=== PATIENT | female | born 2005 | race Caucasian/White ===

== ENCOUNTER 2024-12-27 08:24 | Outpatient (CLI) | payer BC, SELFPAY ==
--- NOTE | ~2024-12-27 | MR_ITS ---
MRI of the right knee Clinical history: Pain Technique: Coronal proton density and proton density-weighted images, sagittal proton-density and T2 fat-sat images, and axial proton-density fat-saturated images were acquired. Findings: Anterior and posterior cruciate ligaments are intact. Medial collateral ligament and the la teral collateral ligament complex appear intact. Popliteus tendon is intact. Medial meniscus is intact, without evidence of tear. There is extensive complex tearing of the anteri or horn and body of the lateral meniscus which are largely absent/macerated, with tearing probably ex tending into the diminutive posterior horn of the lateral meniscus. There is minimal chondral malacia patella. 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 There is probable developing osteochondral lesion along th e lateral aspect of the femoral trochlea. There is high-grade chondromalacia the medial joint line, s uch at the medial tibial plateau. Probable prior surgical repair at the anterior tibial spine with hi gh-grade chondromalacia of the inner aspect of the lateral tibial plateau. Extensor mechanism is intact. Minimal joint effusion present. No Hernandez's cyst. Impression: Extensive complex tearing of the lateral meniscus, especially anterior horn and body, which are large ly macerated absent. Suspected developing osteochondral lesion of the lateral aspect of the femoral trochlea with extensiv e high-grade chondromalacia of the femoral trochlea. There is suspected prior operative repair at the anterior tibial spine. Correlate with surgical histo ry. Additional areas of high-grade contemplation the medial lateral compartments, as detailed above. Reviewed, dictated and finalized at location . Impression: Extensive complex tearing of the lateral meniscus, especially anterior horn and body, which are largely macerated absent. 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 There is suspected prior operative repair at the anterior tibial spine. Correla te with surgical history. Additional areas of high-grade contemplation the medial lateral compartments, a s detailed above.
--- OUTSIDE RECORDS SUMMARY | 2024-12-27 08:31 | XMS_ITS | Clinical Summary ---
Author Organization [facility] Address [address] [place] [address] Phone Care Team Providers Care Hog Killer Name Role Phone Susan Culver APRN, BIRD CAGE ASSEMBLER Primary Care P rovider Paxton Duncan MD Unavailable Vineet Rashid MD Unavailable [phone] Allergies Active Allergy Reactions Criticality Noted Date Comments Baclofen Rash 04/01/2018 Medications clindamycin (CLEOCIN T) 1 % LotionIndicatio ns:Acne vulgaris use thin film on affected area twice a day 3 Bottle 4 1 Active Levonorgestrel- Ethinyl Estrad 0.1-20 MG-MCG Chewable Tablet levonorgestrel- ethinyl estradiol 0.1 mg-20 mcg tablet Active FLUoxetine (PROzac) 10 MG CapsuleIndicati ons:Anxiety TAKE 1 CAPSULE DAILY 90 Capsule 3 4 Active celecoxib (CeleBREX) 200 MG Capsule Take 200 mg by mouth daily. 4 Active albuterol 108 (90 Base) MCG/ACT Aerosol SolutionIndicat ions:History of pneumonia take 2 Puffs by inhalation every 4 hours as needed for Wheezing or Cough (SOB). 18 g 1 4 Active ondansetron (Zofran) 4 MG TabletIndicatio ns:Nausea Take 1 Tablet by mouth every 8 hours as needed for Nausea - 2nd line. 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 Hepatosplenomegaly 12/06/2021 Fatty liver 12/06/2021 Anxiety 02/14/2021 Generalized abdominal pain 11/16/2020 Immunizations Immunization Administration Dates Next Due Covid-19, Mrna, Lnp-s, Pf, 3 0 Mcg/0.3 Ml Dose (Biomonde) 01/14/2021,12/24/2020 Covid-19, Mrna, Lnp-s, Pf, 3 0 Mcg/0.3 Ml Dose, Mitch-sucrose (Biomonde dinh top) 11/09/2021 DTAP VACCINE 01/25/2009, 5,2004,05/11,2004 HIB Vaccine (PRP-T) 04/14/2005,2004,2003 Hepatitis A Vaccine 08/26/2010 Hepatitis B Vaccine 04/14/2005,2004,2003 Human Papillomavirus (HPV) 9 -valent Vaccine 10/28/2018,04/01/2018 Inactivated Polio Vaccine 01/25/2009,01/2004,2004,03/11 Influenza Vaccine 08/27/2016 Influenza Vaccine greater than 3 yrs 07/17/2015, 09/30/2010,08/26/2010 Influenza Vaccine less than 3 yrs 07/17/2007,05/2006,07/14/2005 Influenza Vaccine, MDCK,quad rivalent, pres free 06/22/2019 Influenza Vaccine, Quadrivalent, PF 10/2020,07/28/2018,05/23/2017,06/29 Influenza Vaccine,unspecifie d Formulation 05/11/2022 Influenza,Split Virus,Trivalent,Injectable,PF 08/05/2024 MMR Vaccine 01/25/2009,01/25/2005,01/13/2005 Meningococcal Group B OMV 04/25/2021,03/17/2021 Meningococcal MCV4O 02/23/2020 Meningococcal Vaccine 03/22/2015 PUR FLU 3+ YRS PRES FREE QUAD IM 06/29/2014 PUR HEP A PED ADOLES 2 DOSE IM 02/11/2015 PUR TDAP 7+ YRS IM 03/22/2015 Pneumococcal Vaccine Peds - 7 Valent 02/2005,2004,2004,03/11 Pur Varicella Virus SQ 02/11/2015 Varicella Vaccine Live 01/13/2005 Family History Relation Name Status Comments Father Alive Mother Alive Social History Tobacco Use Types Packs/Day Years Used Date Smoking Tobacco: Never Smokeless Tobacco: Never Tobacco Cessation:Counseling Given: No Alcohol Use Standard Drinks/Week Comments No 0 (1 standard drink = 0.6 oz pur e alcohol) [facility] [employer] Answer Date Recorded In the past 12 months has e [employer], gas, oil, or water company threatened to shut off services in your home? No 08/03/2024 Social Connection and Isolat ion Panel [NHANES] Answer Date Recorded In a typical week, how many times do you talk on the phone with family, friends, or neighbors? More than three times a week 08/03/2024 How often do you get togethe r with friends or relatives? More than three times a week 08/03/2024 How often do you attend [facility] or mandaen services? More than 4 times per year 08/03/2024 Do you belong to any clubs o r organizations such as rastafari groups, unions, fraternal or athletic groups, or school groups? Yes 08/03/2024 How often do you attend meet ings of the clubs or organizations you belong to? More than 4 times per year 08/03/2024 Are you , , di vorced, , never , or living with a partner? Never 08/03/2024 AUDIT-C Answer Date Recorded Q1: How often do you have a drink containing alcohol? Never 08/03/2024 Q2: How many drinks containi ng alcohol do you have on a typical day when you are drinking? Patient does not drink Q3: How often do you have si x or more drinks on one occasion? Never 08/03/2024 Overall Financial Resource Strain (CARDIA) Answe r Date Recorded How hard is it for you to pa y for the very basics like food, housing, medical care, and heating? Not hard at all 08/03/2024 PHQ-2 Answer Date Recorded Total Score - Questions 1-9 5 07/12 [facility] - Occupational Stress Questionnaire Answer Date Recorded Do you feel stress - tense, restless, nervous, or anxious, or unable to sleep at night because your mind is troubled all the time - these days? Rather much 08/03/2024 Exercise Vital Sign Answer Date Recorde d On average, how many days pe r week do you engage in moderate to strenuous exercise (like a brisk walk)? 3 days 08/03/2024 On average, how many minutes do you engage in exercise at this level? 50 min 08/03/2024 Hunger Vital Sign Answer Date Recorded Within the past 12 months, y ou worried that your food would run out before you got the money to buy more. Never true 08/03/20 24 Within the past 12 months, t he food you bought just didn't last and you didn't have money to get more. Never true 08/03/2024 PRAPARE - Transportation Answer Date Re corded In the past 12 months, has l ack of transportation kept you from medical appointments or from getting medications? No 07/12 In the past 12 months, has l ack of transportation kept you from meetings, work, or from getting things needed for daily living? No 08/03/2024 Housing Stability Vital Sign Answer Koby e Recorded In the last 12 months, was t here a time when you were not able to pay the mortgage or rent on time? No 08/03/2024 In the past 12 months, how m any times have you moved where you were living? 1 08/03/2024 At any time in the past 12 m [facility], were you homeless or living in a mcc (including now)? No 08/03/2024 Education Answer Date Recorded What is the highest level of school you have completed or the highest degree you have received? Some college, no degree 02/12/2023 Sexually Active Control Partners Comments Never Comments No Sex and Gender Information Value Date Recorded Sex Assigned at Female 10/30/2023 10:00 PM PSYCHOLOGIST SOCIAL Legal Sex Female 4:03 AM PSYCHOLOGIST SOCIAL Gender Identity Female 10/30/2023 10:00 PM PSYCHOLOGIST SOCIAL Sexual Orientation Straight 10/30/2023 10 :00 PM PSYCHOLOGIST SOCIAL Last Filed Vital Signs Vital Sign Reading Time Taken Comments Blood Pressure 108/76 08/05/2024 7:53 AM PSYCHOLOGIST SOCIAL Pulse 74 08/05/2024 7:53 AM PSYCHOLOGIST SOCIAL Temperature 36.1 C (96.9 F) 08/05/2024 7:53 AM PSYCHOLOGIST SOCIAL Respiratory Rate 16 08/05/2024 7:53 AM PSYCHOLOGIST SOCIAL Oxygen Saturation 99% 08/05/2024 7:53 AM PSYCHOLOGIST SOCIAL Inhaled Oxygen Concentration - - Weight 84.1 kg (185 lb 6.4 oz) 08/05/2024 7:53 A M PSYCHOLOGIST SOCIAL Height 180.3 cm (5' 11 ) 08/05/2024 7:53 AM PSYCHOLOGIST SOCIAL Body Mass Index 25.86 08/05/2024 7:53 AM PSYCHOLOGIST SOCIAL Plan of Treatment Health Maintenance Due Date Last Done Comments SARS-COV-2 Immunization ( season) 2024 11/09/2021, 01/14/2021, 12/24/2020 DTaP/Tdap/Td Immunization (7 - Td or Tdap) 03/22/2025 03/22/2015, 01/25/2009, 04/14/2005, Additional history exists Respiratory Syncytial Virus (RSV) Immunization (Adult) (1 - 1-dose 75+ series) 01/08/2079 Pneumococcal Immunization Combined Aged Out 01/13/2005, 2004, 2004, Additional history exists No longer eligible based on patient's age to complete this topic Hepatitis B Immunization Completed 005, 2004, 2004 Measles Mumps Rubella (MMR) Immunization Discontinued 01/25/2009, 01/25/2005, 01/13/2005 Polio (IPV) Immunization Discontinued 009, 2004, 2004, Additional history exists Hepatitis A Immunization Discontinued 02/11/2015, 08/10 Varicella Immunization Discontinued 02/11/2015, 2004 Human Papillomavirus (HPV) Immunization Completed 10/28/2018, 04/01/2018 Meningococcal Immunization (ACWY) Completed 02/23/2020, 03/22/2015 Meningococcal B Immunization Completed 04/25/2021, 03/17/2021 Hepatitis C Virus (HCV) Screening Completed 12/19/2021 Influenza Immunization Completed , 05/17/2023, 05/11/2022, Additional history exists Rotavirus Immunization Aged Out No lo nger eligible based on patient's age to complete this topic Procedures Procedure Name Priority Date/Time Associated Diagnosis Comments PAIN MEDICINE PROCEDURE 11/07/2024 12:00 AM PSYCHOLOGIST SOCIAL from Last 3 Months Results * PAIN MEDICINE PROCEDURE (11/07/2024 12:00 AM PSYCHOLOGIST SOCIAL) 11/07/2024 us Provider Scan GEN ORDERS Final Result SCAN from Last [address] [place] [address] [place] [address] [place] [address] * Guarantor: [facility] Account Type Relation to Patient Date of Phone Billing Address Institutional Other [address] [facility] [address] [place] [address] Care Teams Hog Killer Relationship Specialty Start Date End Date Susan Culver APRN, BIRD CAGE ASSEMBLER [address] [place] [address] PCP - General Advanced Practice Nurse 12/17/20 Paxton Duncan MD [address] [place] [address] Consulting Physician Gastroenterology 06/29/22 Vineet Rashid MD [address] [place] [address] Consulting Physician Gastroenterology 08/29/22
--- OUTSIDE RECORDS SUMMARY | 2024-12-27 08:31 | XMS_ITS | Encounter Summary ---
Author Organization [facility] Address [address] [place] [address] Phone Care Team Providers Care National Park Ranger Name Role Phone Susan Culver APRN, CNP Primary Care P rovider Paxton Duncan MD Unavailable Vineet Rashid MD Unavailable [phone] Reason for Visit * Reason Comments Medication Refill fluoxetine Encounter Details Date Type Department Care Team (Late st Contact Info) Description 02/05/2024 Refill [facility] - Family Medicine [facility] [address] [place] [address] Susan Culver APRN, JOLIE [address] [place], [place] [id number] Medication Refill (fluoxetine) Social History Tobacco Use Types Packs/Day Years Used Date Smoking Tobacco: Never Smokeless Tobacco: Never Alcohol Use Standard Drinks/Week Comments No 0 (1 standard drink = 0.6 oz pur e alcohol) PHQ-2 Answer Date Recorded Total Score - Questions 1-9 0 01/2023 Education Answer Date Recorded What is the highest level of school you have completed or the highest degree you have received? Some college, no degree 02/12/2023 Sexually Active Control Partners Comments Never Comments No Sex and Gender Information Value Date Recorded Sex Assigned at Female 10/30/2023 10:00 PM HEAVY EQUIPMENT TECHNICIAN Legal Sex Female 4:03 AM HEAVY EQUIPMENT TECHNICIAN Gender Identity Female 10/30/2023 10:00 PM HEAVY EQUIPMENT TECHNICIAN Sexual Orientation Straight 10/30/2023 10 :00 PM HEAVY EQUIPMENT TECHNICIAN documented as of this encounter Miscellaneous Notes * Telephone Encounter - Elise Sheikh RN - 02/05/2024 3:25 PM CDT Requested Prescriptions Pending Prescriptions Disp Refills FLUoxetine (PROzac) 10 MG Capsule [Pharmacy Med Name: FLUOXETINE HCL CAPS 10MG] 90 Capsule 3 Sig: TAKE 1 CAPSULE DAILY Last Refilled - 02/12/23 #90 ref 3 Last Appt - Last physical 02/12/23 Recent Visits Date Type Provider Dept 04/10/23 Office Visit Susan Culver APRN, [facility] 03/26/23 Office Visit Susan Culver APRN, [facility] 02/12/23 Office Visit Susan Culver APRN, [facility] Showing recent visits within past 365 days and meeting all other requirements Future Appointments No visits were found meeting these conditions. Showing future appointments within next 90 days and meeting all other requirements Future Appt - Visit date not found Labs - na documented in this encounter Plan of Treatment Not on file documented as of this encounter Visit Diagnoses Diagnosis Anxiety Anxiety state, unspecified documented in this encounter Additional Health Concerns Infection Onset Date Last Indicated Resolved Time Respiratory Rule-Out 06/03/2024 06/03/2024 024 8:04 AM HEAVY EQUIPMENT TECHNICIAN Assessment Noted Time PHQ-9 Depression Total Score: 0 02/13/20 23 1:49 PM CDT documented as of this encounter Care Teams National Park Ranger Relationship Specialty Start Date End Date Susan Culver APRN, JOLIE [address] [facility] [address] [place] [address] PCP - General Advanced Practice Nurse 12/17/20 Paxton Duncan MD [address] [place], [place] [id number] Consulting Physician Gastroenterology 06/29/22 Vineet Rashid MD [address] [place] [address] Consulting Physician Gastroenterology 08/29/22 documented as of this encounter
--- OUTSIDE RECORDS SUMMARY | 2024-12-27 08:31 | XMS_ITS | Data Portability ---
Author Organization [facility], autoContract - Main Office Address [address] [place] [address] Care Team Providers Care Fitting Room Supervisor Name Role Phone YANELI MCCOLLUM Primary Care Provider Assessment No assessment recorded. Plan of Treatment Reminders Order Date Submit Date Provider Last Modified By Organization Details Last Modified Time Details Appointments None recorded. Lab respiratory pathogens DNA and RNA panel, PCR, nasopharynx 2023 024 [facility] (Lab), [address] [place] [address], [id number], 4 14:04:47 unlisted lab - rapid strep 2023 024 [facility] (Lab), [address] [place] [address], [id number], 4 18:33:13 influenza virus A + B and SARS CoV 2 (COVID-19) and RSV RNA panel, LINNETTE+probe, respiratory specimen 2023 024 [facility] (Lab), [address] [place] [address], [id number], 4 18:33:13 Referral None recorded. Procedures None recorded. Surgeries None recorded. Imaging XR, chest, 2 view 2023 024 [email or web address] [facility], [address] [place] [address], [id number], 4 12:34:39 XR, chest, 2 view 09/2023 [email or web address] [facility], [address] [place], [address], 15:51:51 Medication Orders albuterol sulfate 2.5 mg/3 mL (0.083 %) solution for nebulizatio n 2023 024 [email or web address] Not available 10:45:07 doxycycline hyclate 100 mg capsule 2023 [facility], [address] [place], [address], 11:30:42 azithromyci n 250 mg tablet 2023 [facility], [address] [place], [address], 15:47:32 sodium chloride 0.9 % intravenous solution 2023 [email or web address] [facility], [address] [place], [address], 10:29:56 Patient TargetsNo targets recorded. Patient Instructions Encounter Date Encounter Id Patient Instructions Last Modified By Organization Details Last Modified Time 05/28/2024 [id number] Finish out the azithromycin Start Doxycycline today Push fluids May use albuterol inhaler 2 puffs every 6 hours for next few days to help open up lungs If not improving in 3-4 days, then follow up. [email or web address] Not available 05/28/2024 12:26:30 Reason for Referral None Reported. Results Created Date Observation Date Name Description Value Unit Range Abnormal Flag Note LastModifiedBy Organization Detail LastModifiedTime 05/25/2005/25/2024 4 PLEX PANEL influenza A Negati ve negati ve normal Elect shannan beauchamp by BRUNO Retana Not Available [facility] (Lab) [address] [place], [address], 05/25/2024 15:03:15 05/25/20 05/25/2024 4 PLEX PANEL influenza B Negati ve negati ve normal Not Available [facility] [address] [place] [address], [id number], 05/25/2024 15:03:15 05/25/20 24 05/25/2024 4 PLEX PANEL covid-19 Negati ve negati ve normal Not Available [facility] [address] [place] [address], [id number], 05/25/2024 15:03:15 05/25/20 24 05/25/2024 4 PLEX PANEL RSV Negati ve negati ve normal Not Available [facility] [address] [place] [address], [id number], 05/25/2024 15:03:15 05/25/20 24 05/25/2024 RAPID STREP rapid strep Negati ve negati ve normal Elect ronic ally damaris d by BRUNO HAYS R Not Available [facility] [address] [place] [address], [id number], 05/25/2024 15:03:16 06/03/20 24 06/03/2024 RESPI RATOR Y covid-19 Negati ve negati ve normal Elect ronic ally damaris d by BRUNO AGUILERAE R Not Available [facility] [address] [place] [address], [id number], 06/03/2024 14:04:47 06/03/20 24 06/03/2024 RESPI RATOR Y adenovirus Negati ve normal Not Available [facility] [address] [place] [address], [id number], 06/03/2024 14:04:47 06/03/20 24 06/03/2024 RESPI RATOR Y influenza A Negati ve negati ve normal Not Available [facility] [address] [place] [address], [id number], 06/03/2024 14:04:47 06/03/20 24 06/03/2024 RESPI RATOR Y influenza B Negati ve negati ve normal Not Available [facility] ([facility]) [address] [place] [address], [id number], 06/03/2024 14:04:47 06/03/20 24 06/03/2024 RESPI RATOR Y bordetella pert Negati ve negati ve normal Not Available [facility] ([facility]) [address] [place] [address], [id number], 06/03/2024 14:04:47 06/03/20 24 06/03/2024 RESPI RATOR Y RSV A+B Negati ve negati ve normal Not Available [facility] [address] [place] [address], [id number], 06/03/2024 14:04:47 06/03/20 24 06/03/2024 RESPI RATOR Y flu A H1N1 [id number] Negati ve negati ve normal Not Available [facility] ([facility] [address] [place] [address], [id number], 06/03/2024 14:04:47 06/03/20 24 06/03/2024 RESPI RATOR Y cor 229E Negati ve negati ve normal Not Available [facility] ([facility] [address] [place] [address], [id number], 06/03/2024 14:04:47 06/03/20 24 06/03/2024 RESPI RATOR Y cor hku1 Negati ve negati ve normal Not Available [facility] ([facility]) [address] [place] [address], [id number], 06/03/2024 14:04:47 06/03/20 24 06/03/2024 RESPI RATOR Y cor nl63 Negati ve negati ve normal Not Available [facility] ([facility] [address] [place] [address], [id number], 06/03/2024 14:04:47 06/03/20 24 06/03/2024 RESPI RATOR Y cor oc43 Negati ve negati ve normal Not Available [facility] ([facility]) [address] [place] [address], [id number], 06/03/2024 14:04:47 06/03/20 24 06/03/2024 RESPI RATOR Y influenza A H1 Negati ve negati ve normal Not Available [facility] ([facility]) [address] [place] [address], [id number], 06/03/2024 14:04:47 06/03/20 24 06/03/2024 RESPI RATOR Y influenza A H3 Negati ve negati ve normal Not Available [facility] ([facility]) [address] [place] [address], [address], 06/03/2024 14:04:47 06/03/20 24 06/03/2024 RESPI RATOR Y parainflu V1 Negati ve negati ve normal Not Available [facility] ([facility]) [address] [place] [address], [address], 06/03/2024 14:04:47 06/03/20 24 06/03/2024 RESPI RATOR Y parainflu V2 Negati ve negati ve normal Not Available [facility] ([facility]) [address] [place] [address], [id number], 06/03/2024 14:04:47 06/03/20 24 06/03/2024 RESPI RATOR Y parainflu V3 Negati ve negati ve normal Not Available [facility] ([facility]) [address] [place] [address], [address], 06/03/2024 14:04:47 06/03/20 24 06/03/2024 RESPI RATOR Y parainflu V4 Negati ve negati ve normal Not Available [facility] (Lab) [address] [place] [address], [id number], 06/03/2024 14:04:47 06/03/20 24 06/03/2024 RESPI RATOR Y rhino/entero Negati ve negati ve normal Not Available [facility] [address] [place] [address], [id number], 06/03/2024 14:04:47 06/03/20 24 06/03/2024 RESPI RATOR Y mycoplasma pn Negati ve negati ve normal Not Available [facility] (Lab) [address] [place] [address], [id number], 06/03/2024 14:04:47 06/03/20 24 06/03/2024 RESPI RATOR Y chlamydophil a pn Negati ve normal Not Available [facility] (Lab) [address] [place] [address], [id number], 06/03/2024 14:04:47 05/25/20 24 05/25/2024 XR, chest , 2 view No observ ation record ed. [facility] [address] [place] [address], [address], 06/02/2024 13:52:46 06/03/20 24 06/03/2024 XR, chest , 2 view No observ ation record ed. [facility] [address] [place] [address], [id number], 06/05/2024 12:56:05 Result Notes Documentation Provider Name and Address Organization Details Recorded Time Xr, Chest, 2 View : [facility] Chest Views: PA, lateral Quality: good Interpretation: no cardiomegaly, no lymphadenopathy, no diaphragm abnormalities, infiltrate, lung field LLL CHANI VIGIL MD [address] [place] [address], [phone], [facility] 06/02/2024 13:52:46 Xr, Chest, 2 View : [facility] Chest Views: PA, lateral Quality: good Interpretation: no active pulmonary disease, no cardiomegaly, no lymphadenopathy, no diaphragm abnormalities, previous early LLL infiltrate improved. CHANI VIGIL MD [facility] [place], [address], [facility] 06/05/2024 12:56:06 Problems Name Problem SNOMED Code Status Onset Date Resolution Date Notes Provider Name and Address Organization Details Recorded Time Postural orthostatic tachycardia syndrome 865793591 Active Josseline garcia null, [facility] 4 14:16:40 Problem Notes None recorded. Procedures Surgical History Date Name Laterality Status Provider Name and Address Organization Details Recorded Time 024 IV Fluids completed Josseline Gullickson [facility] 05/25/2024 15:47:11 024 IV Discontinuation completed Josseline Gullickson [facility] 05/25/2024 15:47:50 024 IV Insertion completed Josseline Gullickson [facility] 05/25/2024 15:38:19 Imaging Results Imaging Date Name Status LastModified by Organiz ation Details LastModified Time 05/25/2024 XR, chest, 2 view completed [facility] [address] [place] [address], [id number], 06/02/2024 13:52:46 06/03/2024 XR, chest, 2 view completed [facility] [address] [place] [address], [id number], 06/05/2024 12:56:05 Procedure Notes None recorded. Medical Equipment None Reported. Allergies Allergen ID Allergen Name Allergen Category Reaction Reaction Severity Criticality Documentation Date Start Date Code Code System Note Provider Name and Address Organization Details Recorded Time 1592 baclofen medicatio n rash Not available Not available 05/25/2024 1292 RxNorm Josseline garcia null, [facility] 4 14:16:20 Medications Name Sig Start Date Stop Date Status Note LastModified by Organization Details LastModified Time doxycycline hyclate 100 mg capsule Take 1 capsule twice a day by oral route for 10 days. 2023 active Not Available Not Available Not Avai lable albuterol sulfate 2.5 mg/3 mL (0.083 %) solution for nebulizatio n Inhale 3 mL 3 times a day by nebulizat ion route. 2023 active Not Available Not Available Not Avai lable azithromyci n 250 mg tablet TAKE 2 TABLETS (500 MG) BY ORAL ROUTE ONCE DAILY FOR 1 DAY THEN 1 TABLET (250 MG) BY ORAL ROUTE ONCE DAILY FOR 4 DAYS 2023 active Not Available Not Available Not Avai lable fluoxetine 10 mg capsule Take 1 capsule every day by oral route. active Not Available Not Available No t Available sodium chloride 0.9 % intravenous solution Inject 500 mL by intraveno us route. 05/28 completed Not Available Not Available Not Available Celebrex active Not Available Not Avai lable Not Available HIEDY (28) 3 mg-0.02 mg tablet Take 1 tablet every day by oral route. active Not Available Not Available No t Available Vitals Date Recorded Body height Body mass index (BMI) Body mass index (BMI) Percentile per age and sex Body weight Body temperature Respiratory rate Heart rate Oxygen saturation Oxygen saturation in Arterial blood by Pulse oximetry Systolic blood pressure Diastolic blood pressure Provider Name and Address Organization Details Last Updated DateTime 4 180.34 cm 25.1 kg/m2 78 % 59365.6 3 g 97.9 [degF] 18 /min 74 /min 98 % 98 % 126 mm[Hg] 82 mm[Hg] Josseline garcia [facility] 4 14:17:25 Date Recorded Body height Body mass index (BMI) Body mass index (BMI) Percentile per age and sex Body weight Body temperature Respiratory rate Heart rate Oxygen saturation Oxygen saturation in Arterial blood by Pulse oximetry Systolic blood pressure Diastolic blood pressure Provider Name and Address Organization Details Last Updated DateTime 4 180.34 cm 25.5 kg/m2 80 % 41904.4 g 98.2 [degF] 16 /min 77 /min 98 % 98 % 128 mm[Hg] 87 mm[Hg] Madga Nice [facility] 4 10:29:20 Date Recorded Body height Body mass index (BMI) Percentile per age and sex Body mass index (BMI) Body weight Body temperature Respiratory rate Heart rate Oxygen saturation Oxygen saturation in Arterial blood by Pulse oximetry Systolic blood pressure Diastolic blood pressure Provider Name and Address Organization Details Last Updated DateTime 4 180.34 cm 80 % 25.4 kg/m2 89188.8 1 g 97.9 [degF] 16 /min 65 /min 98 % 98 % 121 mm[Hg] 77 mm[Hg] Josseline garcia [facility] 4 11:36:58 Social History None recorded. Functional Status None recorded. Mental Status None recorded. Family History Nothing Reported. Medical History Condition Response Other Y Gynecological HistoryNo gynecological history recorded. Obstetrics History GPAL:G 0 P 0 0 0 0 Past Encounters Encounter ID Performer Location Encounter Start Date Encounter Closed Date Diagnosis/Indication Diagnosis SNOMED-CT Code Diagnosis ICD10 Code Diagnosis Note [id number] [facility] @ [address] [address] 05/25/2024 14:05:51 05/25/2024 15:51:51 Sore throat 826208373 J02.9 Dyspnea 305049292 R06.00 Dizziness 651390206 R42 Lower resp iratory tract infection 28002501 J22 Chest x-ray completed with infiltrate s noted per my preliminar y read. Will cover with azithromyc in. Medication use/side effects discussed. COVID 19 testing is {{positive negative* }} and Influenza testing is {{positive negative* }} at this time. Rapid strep negative. Improvemen t of dizziness and headache with IV fluids. Recommend symptomati c treatment at home with rest, increased fluid intake with water, humidifier , and use of over the counter medication s such as mucinex for cough and congestion . May consider use of Tylenol/Ib uprofen as needed for any fevers, aches, or pains. Recommend use of cough lozenges or warm tea with honey for relief of sore throat and cough. Follow up locally if symptoms do not improve or worsen at any time. [id number] GUNNER CARRERO, [facility] [address] [place] [address] 05/28/2024 10:22:22 05/28/2024 12:56:28 Pneumonia 901649212 J18.9 [id number] [facility] [address] [place] [address] 06/03/2024 11:29:33 06/03/2024 12:34:38 Dyspnea 284978257 R06.00 Lower resp iratory tract infection 47174199 J22 Repeat chest x-ray completed with infiltrate s noted per my preliminar y read stable from previous images. Given no improvemen t in symptoms, will complete respirator y panel to determine exact etiology. No evidence of bacterial infection on exam today. Lung sounds improved with stable oxygen saturation . No evidence of ear infection. Recommend symptomati c treatment at home with rest, increased fluid intake with water, humidifier , and use of over the counter medication s such as mucinex for cough and congestion . May consider use of Tylenol/Ib uprofen as needed for any fevers, aches, or pains. Recommend use of cough lozenges or warm tea with honey for relief of sore throat and cough. Recommend to complete course of antibiotic therapy as prescribed . Patient has 4 days of Doxycyclin e to finish. May add nasal spray such as Flonase or Nasacort to help decrease inflammati on and reduce ear pain. May consider a heat pack. Continue Tylenol/ib uprofen as needed for headache. Follow up locally if symptoms do not improve or worsen at any time. Health Concerns Section Related Observation LastModified by Organization Detai ls LastModified Time None Recorded Concern Status LastModified by Organization Details LastModified Time None Recorded Advance Directives Directive None Recorded Payers Encounter Date Sequence Insurance Name Policy Number Policy De Jesus Covered Member ID De Jesus Member ID Guarantor Name 05/25/2024 1 [place] [employer] [place] [id number] Mihir Hernandez [id number] [facility] 05/28/2024 1 [place] [employer] [place] [id number] Mihir Hernandez [id number] Skye [facility] 06/03/2024 1 [place] [facility] [place] ([place]O) [id number] Mihir Hernandez [id number] Skye Hernandez Notes Date Note Type Note Provider Name and Address Organization Details Recorded Time 05/25/2024 text/html CoughReported bypatient.Notes:Skye is a 19 y.o. female patient who presents to [facility] for concerns of sore throat, headache, cough, and fatigue. Symptoms started 4 days ago. Have worsened. Does have multiple sick contacts, [employer] student. Appetite decreased. Drinking water, gaterade, and liquid IV. Has felt dizzy. Cough is nonproductive and dry. Does have sore throat. Denies vomiting or diarrhea. Has felt short of breath at times. Denies wheezing. Has tried OTC treatment w/o relief. RN note, pt here with c/o sore throat, headache, ear pain, cough, stomach ache, fatigue, decreased appetite x 4 days. [employer] student. JOSSIE [place], HARRIET-C [address] [place] [address], [phone], [facility] 05/25/2024 17:09:32 05/28/2024 text/html Skye c/o worseni ng symptoms despite antibiotics. She was instructed to return if symptoms did not improve. She c/o back pain, chest tightness and shortness of breath. Denies fever. Skye is a 19 yo female who is a [employer] student from [place]. She was actually seen on Sunday with cough, chest tightness, and back discomfort, fatigue and just not feeling well. She was dehydrated on Sunday and had headache with dizziness and that improved with IV fluids. SHe had workup and found to have bilateral infiltrates on Chest x-ray. She was started on Azithromycin and has 2 doses left, but is back today reporting that she doesn't feel any better, and actually feels worse. No fevers, but she feels more short of breath, and wakes up gasping, her cough is non productive, and her back discomfort is worse, across upper thoracic region, but more so behind right scapula. She does not appear in any acute distress, and is not toxic appearing. She denies headache and dizziness and has been pushing lots of oral fluids. GUNNER CARRERO, SALON SHAMPOO ASSISTANT-C [address] [place], [address], [facility] 05/28/2024 12:28:16 06/03/2024 text/html HeadacheReported bypatient.Notes:Skye Hernandez is a 19 y.o. female patient who presents to [facility] for concerns of headache and left ear pain. Symptoms started originally on . Was seen by myself and started on Azithromycin for early lower respiratory illness. Symptoms did not improve and was seen on 05-29-24 and placed on Doxycyline and Albuterol inhaler PRN. Reports that symptoms have still lingered with new onset of left ear pain and continued headache on Sunday. Appetite is still decreased and she is not sleeping well. Waking up frequently in the night. Denies cough, sore throat, or fevers. Drinking water with 1/2 L daily and gaterade. Takes tylenol mainly at night. Headache is located on the left side of her head near temporal region. Denies any dizziness, lightheadedness, chest pain, or any other concerns at this time. Tried mucinex last week. Will have upcoming knee surgery on . RN note; pt here with c/o headache and left ear pain. Was here a couple of days ago for back pain and chest pain, received atb and inhaler. The headache and left ear pain are new, and decreased appetite. LMP 05/28/2024. Does have POTS. HARRIET QIU-C [address] [place], [address], [facility] 06/03/2024 14:23:44 OBGyn Episode No OBEpisode recorded.
--- OUTSIDE RECORDS SUMMARY | 2024-12-27 08:31 | XMS_ITS | Encounter Summary ---
Author Organization [facility] Address [address] [place] [address] Phone Care Team Providers Care Manager Enrollment Name Role Phone Susan Culver APRN, CNP Primary Care P roaileender Paxton Duncan MD Unavailable Vineet Rashid MD Unavailable [phone] Reason for Visit * Reason Comments Medication Refill Encounter Details Date Type Department Care Team (Late st Contact Info) Description 10/15/2022 Refill [facility] - Family Medicine - [place] [address] [place], [place] [phone] Hiwot Jack, [facility] [address] [place] [address] Medication Refill Social History Tobacco Use Types Packs/Day Years Used Date Smoking Tobacco: Never Smokeless Tobacco: Never Alcohol Use Standard Drinks/Week Comments No 0 (1 standard drink = 0.6 oz pur e alcohol) PHQ-2 Answer Date Recorded Total Score - Questions 1-9 0 02/09 Education Answer Date Recorded What is the highest level of school you have completed or the highest degree you have received? 12th grade 02/26/2022 Sexually Active Control Partners Comments Never Comments No Sex and Gender Information Value Date Recorded Sex Assigned at Female 10/30/2023 10:00 PM TRANSLITERATOR Legal Sex Female 4:03 AM TRANSLITERATOR Gender Identity Female 10/30/2023 10:00 PM TRANSLITERATOR Sexual Orientation Straight 10/30/2023 10 :00 PM TRANSLITERATOR documented as of this encounter Miscellaneous Notes * Telephone Encounter - Jose Alejandro Barrera RN - 10/15/2022 8:17 PM CST Skye Hernandez requesting refill of Requested Prescriptions Pending Prescriptions Disp Refills ??? FLUoxetine (PROzac) 10 MG Capsule [Pharmacy Med Name: FLUOXETINE HCL CAPS 10MG] 90 Capsule 3 Sig: TAKE 1 CAPSULE DAILY Last office visit: 02/28/22 Next office visit: Visit date not found Medication pended. SLITERATOR documented in this encounter Plan of Treatment Not on file documented as of this encounter Visit Diagnoses Diagnosis Anxiety Anxiety state, unspecified documented in this encounter Additional Health Concerns Infection Onset Date Last Indicated Resolved Time Respiratory Rule-Out 06/03/2024 06/03/2024 024 8:04 AM TRANSLITERATOR Assessment Noted Time PHQ-9 Depression Total Score: 0 02/29/20 8:50 AM CDT documented as of this encounter Care Teams Manager Enrollment Relationship Specialty Start Date End Date Susan Culver APRN, MANAGER LABOR RELATIONS [address] [facility] [address] [place] [address] PCP - General Advanced Practice Nurse 12/17/20 Paxton Duncan MD [address] [place] [address] Consulting Physician Gastroenterology 06/29/22 Vineet Rashid MD [address] [place] [address] Consulting Physician Gastroenterology 08/29/22 documented as of this encounter
--- OUTSIDE RECORDS SUMMARY | 2024-12-27 08:31 | XMS_ITS | Encounter Summary ---
Author Organization [facility] Address [address] [place] [address] Phone Care Team Providers Care Broacher Name Role Phone Susan Culver APRN, JOLIE Primary Care P roaileender Paxton Duncan MD Unavailable Vineet Rashid MD Unavailable [phone] Encounter Details Date Type Department Care Team (Late st Contact Info) Description 07/12/2022 Lab Requisition [facility] Services [address] [place] [address] Vineet Rashid MD [address] [place] [address] Social History Tobacco Use Types Packs/Day Years [...] Sex Assigned at Female 10/30/2023 10:00 PM SAFETY ATTENDANT Legal Sex Female 4:03 AM SAFETY ATTENDANT Gender Identity Female 10/30/2023 10:00 PM SAFETY ATTENDANT Sexual Orientation Straight 10/30/2023 10 :00 PM SAFETY ATTENDANT COVID-19 Exposure Response Date Recorded In the last 10 days, have yo u been in contact with someone who was confirmed or suspected to have Coronavirus/COVID-19? No / Unsure 07/12/2022 1:59 PM CDT documented as of this encounter Plan of Treatment Not on file documented as of this encounter Procedures Procedure Name Priority Date/Time Associated Diagnosis Comments PATHOLOGY SURGICAL Routine 07/12/2022 10 :10 AM CDT documented in this encounter Results * PATHOLOGY SURGICAL (07/12/2022 10:10 AM CDT) Case Report Surgical Pathology Report Case: [id number] Authorizing Provider: Vineet Rashid MD Collected: 07/12/2022 10:10 AM Ordering Location: [facility] Received: 07/12/2022 11:12 AM [facility] Pathologist: Marnie Chaudhary MD Specimens: A) - Duodenum, Duodenum cold biopsy B) - Stomach, Gastric cold biopsy C) - Colon, Ileum cold biopsy D) - Colon, Random colon cold biopsy 07/17/2022 9:53 AM SAFETY ATTENDANT [facility] FINAL DIAGNOSIS A. Small intestine, d uodenum , cold biopsy: Mild vascular congestion, otherwise unremarkable. Negative for significant inflammatory infiltrate and dysplasia. Nondiagnostic for celiac disease. (See microscopic description and comment) B. Stomach, site not otherwise specified, cold biopsy: Mild nonspecific superficial chronic gastritis with focal mild reactive changes. Negative for Helicobacter pylori organisms by immunohistochemistry stain. Negative for dysplasia. (See microscopic description and comment) C. Small intestine, i leum , cold biopsy: Benign lymphoid aggregate/nodule, mild mucosal edema and mild vascular congestion. Negative for significant inflammatory infiltrate and dysplasia. (See microscopic description and comment) D. Colon, r andom colon cold biopsy: Occasional benign lymphoid aggregate/nodules and changes consistent with bowel preparation. Negative for significant inflammatory infiltrate and dysplasia. (See microscopic description 07/17/2022 9:53 AM SAFETY ATTENDANT [facility] at 0953 SAFETY ATTENDANT Comment A, B, C, and D: Clinical/endoscopic/co lonoscopy correlation is advised. In evaluation of this case, intradepartmental consultation was obtained prior to finalizing this report 07/17/2022 9:53 AM [facility] Pre-Operative Diagnosis Abdominal pain, nausea. 07/17/2022 9:53 AM [facility] Gross Description A. Duodenum cold biopsy A. Received in formalin labeled with the patient's name and duodenum biopsy are three spongy dark summers fragments of tissue ranging from 1 mm to 2 mm. Entirely submitted in block A1, three pieces. B. Gastric cold biopsy B. Received in formalin labeled with the patient's name and gastric biopsy are five summers strips of tissue ranging from 3 mm to 9 mm. Entirely submitted in block B1, five strips. C. Ileum cold biopsy C. Received in formalin labeled with the patient's name and ileum biopsy are two spongy summers fragments of tissue measuring 2 mm and 3 mm. Entirely submitted in block C1, two pieces. D. Random colon cold biopsy D. Received in formalin labeled with the patient's name and random colon biopsy are six spongy pink strips of tissue ranging from 3 mm to 8 mm. Entirely submitted in block D1, six strips. [facility] Bl[facility] 07/17/2022 9:53 AM [facility] Microscopic Description A. Two H&E stained slides are examined. The sections demonstrate fragmented portions of small intestinal type mucosa, clinically from the duodenum, showing generally preserved villous and glandular architecture. The lamina propria contains a few congested blood vessels and the usual sprinkling of inflammatory cells composed of lymphocytes, plasma cells and eosinophils. No granulomas or increased number of intraepithelial lymphocytes are noted. Dysplastic changes are not observed in the sections examined. B. Three slides (including H&E stained slides and Helicobacter pylori organism immunohistochemistry stained slides with appropriately staining control) are examined. The sections demonstrate multiple fragmented strips gastric mucosa showing generally preserved glandular architecture with focal mild reactive glandular changes. The superficial lamina propria contains occasional congested blood vessels and patchy minimal to mild inflammatory infiltrate composed of lymphocytes, plasma cells and eosinophils. Occasional benign lymphoid aggregate is noted in 1 of the fragments. No increased number of intraepithelial lymphocytes is noted. Immunohistochemistry stain for Helicobacter pylori organisms, performed on the paraffin block with appropriately staining control, is negative. Dysplastic changes are not observed in the material examined. C. Two H&E stained slides are examined. The sections demonstrate fragmented portions of small intestinal type mucosa showing generally preserved villous and glandular architecture the lamina propria is mildly edematous and contains occasional congested blood vessels and the usual sprinkling of inflammatory cells composed of lymphocytes, plasma cells eosinophils. Fragmented portions of benign lymphoid aggregate/nodule are also noted. No atypical lymphoid proliferation or atypical cells or dysplastic changes are identified in the sections examined. D. Two H&E stained slides are examined. The sections demonstrate multiple fragmented strips of colonic mucosa showing generally preserved crypt and glandular architecture. The lamina propria is mildly edematous and contains occasional congested blood vessels with focal extravasated red blood cells and the usual sprinkling of inflammatory cells composed of, plasma cells and eosinophils. Some of the fragments contains benign lymphoid aggregates/nodules. No granulomas or increased number of intraepithelial lymphocytes or acute cryptitis or crypt abscesses are noted. The subepithelial collagen layer does not appear to be thickened in the H&E stained sections. Dysplastic changes are not observed in the material examined. Glass slides prepared at [facility] CLIA#[id number]. 07/17/2022 9:53 AM SAFETY ATTENDANT [facility] Other DUODENAL STRUCTURE / Unknown 07/12/2022 10:10 AM CDT 07/12/2022 11:12 AM CDT Specimen of unknown material (specimen) STOMACH STRUCTURE / Unknown 07/12/2022 10:11 AM CDT 07/12/2022 11:12 AM CDT Specimen of unknown material (specimen) COLON STRUCTURE / Unknown 07/12/2022 10:20 AM CDT 07/12/2022 11:12 AM CDT Specimen of unknown material (specimen) COLON STRUCTURE / Unknown 07/12/2022 10:21 AM CDT 07/12/2022 11:12 AM CDT Vineet Rashid MD PATHOLOGY/CYTOLOGY ORDERABLES Final Result [facility] [address] [place] [address], [facility] [address] [place] [address], documented in this encounter Visit Diagnoses Not on filedocumented in this encounter Additional Health Concerns Infection Onset Date Last Indicated Resolved Time Respiratory Rule-Out 06/03/2024 06/03/2024 024 8:04 AM SAFETY ATTENDANT Assessment Noted Time PHQ-9 Depression Total Score: 0 02/29/20 8:50 AM CDT documented as of this encounter Care Teams Broacher Relationship Specialty Start Date End Date Susan Culver, AUDIENCE DEVELOPMENT MANAGER, GARAGE CONSTRUCTION EQUIPMENT MECHANIC [address] [facility] [address] [place] [address] PCP - General Advanced Practice Nurse 12/17/20 Paxton Duncan MD [address] [place], [place] [id number] Consulting Physician Gastroenterology 06/29/22 iVneet Rashid MD [address] [place] [address] Consulting Physician Gastroenterology 08/29/22 documented as of this encounter
--- OUTSIDE RECORDS SUMMARY | 2024-12-27 08:32 | XMS_ITS | Data Portability ---
Author Organization [facility] [place], [facility] Address [address] [place] [address] Care Team Providers Care Information Broker Name Role Phone HOWARD GRAVES Referring Provider YANELI MCCOLLUM Primary Care Provider Assessment Encounter Date Assessment Date Assessment LastModified by Organization Details LastModified Time 07/03/2024 07/03/2024 She will initiate a course of physical therapy over the next 4 to 5 weeks and let us know how she is doing after the with an update. We reviewed the operative findings as well and she understands. All questions were answered and we will see her back in 6 weeks if symptoms persist. K PPI [email or web address] Not available 07/03/2024 18:23:15 Plan of Treatment Reminders Order Date Submit Date Provider Last Modified By Organization Details Last Modified Time Details Appointments Est Patient/F ollow Up 2024 11:30A M Dr. Arya Cruz Not available Not available Not available Lab None recorded. Referral physical therapist referral - Surgical Diagnosis : s/p right knee scope, articular cartilage debrideme nt, anterior horn lateral meniscal debrideme nt, loose body removal on 4Physicia n Goals:fortunato n relief, increased function, activitie s of daily living, education --------- --------- --------- --------- --------- --------- --------- --------- --------- --------- --------- --------- --------- --------- --------- --------- Please refer to Belia AriasFlipKey for protocol Knee debrideme nt Please email [email or web address] for question/ concerns- --------- --------- --------- --------- --------- --------- --------- --------- --------- --------- --------- --------- --------- --------- --------- --------- Treatment : PT evaluate & treat - Phase I-III --------- --------- --------- --------- --------- --------- --------- --------- --------- --------- --------- --------- --------- --------- --------- --------- -Exercise :Phase I 0-2 weeks: Heel slides, quad/hams tring sets,SLR, planks, bridges, abs, step-ups and stationar y bike as tolerated Phase II 2-4 weeks: Progress Phase I exercises ; Add sport-spe cific exercises as tolerated Cycling, elliptica l, running astolerat edPhase III 4-12 weeks: Advance sport-spe cific exercises astolerat ed. Maintenan ce core, glutes, hip and balance program* focus on medial tibia/pes bursa region, eval and treat, incorpora te manual modalitie s as indicated incorpora te BFR------ --------- --------- --------- --------- --------- --------- --------- --------- --------- --------- --------- --------- --------- --------- --------- ----Modal ities:Per Therapist 2023 024 [email or web address] [facility], [address] , [place], [address], 07/15/2024 13:50:[address] referral - RIGHT 2023 024 [email or web address] Not available 04/07/2024 14:39:[address] referral - RIGHT 2023 024 Not available 04/07/2024 13:34:32 Procedures None recorded. Surgeries None recorded. Imaging None recorded. Medication Orders None recorded. Patient TargetsNo targets recorded. Patient InstructionsNo instructions recorded. 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 Surgical Diagnosis: s/p right knee scope, articular cartilage debridement, anterior horn lateral meniscal debridement, loose body removal on 4Physician Goals:pain relief, increased function, activities of daily living, education ----- Please refer to [employer] for protocol Knee debridement Please email [email or web address] for question/concerns ----- Aamir winsome t: PT evaluate & treat - Phase I-III ----- Exercise:Phase I 0-2 weeks: Heel slides, quad/hamstring sets,SLR, planks, bridges, abs, step-ups and stationary bike as toleratedPhase II 2-4 weeks: Progress Phase I exercises; Add sport-specific exercises as tolerated Cycling, elliptical, running astoleratedPhase III 4-12 weeks: Advance sport-specific exercises astolerated. Maintenance core, glutes, hip and balance program* focus on medial tibia/pes bursa region, eval and treat, incorporate manual modalities as indicatedincorporate BFR ----- Modalities:Per Therapist Referring Physician: Fernando Thomas, Orthopedic Surgery, Encounter Date: 07/03/2024 Results Created Date Observation Date Name Description Value Unit Range Abnormal Flag Note LastModifiedBy Organization Detail LastModifiedTime 04/07/20 24 MRI, knee, w/o contr ast No observ ation record ed. [email or web address] [facility] [address], [place], [address], 04/07/2024 23:47:36 04/07/20 24 CT, knee, w/o contr ast No observ ation record ed. [email or web address] [facility] [address], [place], [address], 04/07/2024 23:47:22 Result Notes None recorded. Problems Name Problem SNOMED Code Status Onset Date Resolution Date Notes Provider Name and Address Organization Details Recorded Time Tear of lateral meniscus of knee 360573625 Active 2016 TOSIN Cutler [address], [place], [address] , [facility] 7 15:52:02 Pain of right knee joint 7727450389019 00 Active 2022 Arya Cruz MD [address] [facility], [place], [address], [facility] 3 17:16:35 Effusion of joint of right knee 7221635200630 04 Active 2022 TOSIN Cota [address] [place], [address], [facility] 3 10:37:33 Defect of articular cartilage 407383512 Active 2022 Arya Cruz MD [address] [place], [address], [facility] 3 14:43:18 Effusion of joint 876991205 Active 2023 Arya Cruz MD [address] [place], [address], [facility] 4 17:13:57 Derangement of meniscus 659280069 Active 2023 Arya Cruz MD [address] [place], [address], [facility] 4 12:24:38 Knee pain Active 2023 Castillo reyna PA-C [address] [place], [address], [facility] 4 14:43:37 Chondromala adam 15842427 Active 2023 Arya Cruz MD [address] [place], [address], [facility] 4 13:52:40 Problem Notes None recorded. Procedures Surgical History Date Name Laterality Status Provider Name and Address Organization Details Recorded Time 06/24/20 DME Cryo Paint [place] Wrap Large completed NYAELI SANCHEZ [facility] [place] 06/26/2024 12:55:41 04/07/20 DME Genutrain Knee Support completed MADIHA MCMILLAN [facility] [place] 04/07/2024 16:54:17 04/07/20 24 Aspiration/Jose roid Knee Depo40 completed Arya Cruz MD [address] [facility], [place], [address], [facility] 04/08/2024 06:44:53 04/07/20 24 [address]_LE WITHOUT contrast completed SILVINA LYNN [facility] [place] 04/07/2024 13:47:33 04/07/20 24 MRI_LE Joint WITHOUT contrast completed LAXMI RICHARDSON [facility] [place] 04/07/2024 13:34:30 12/07/19 24 Aspiration/Jose roid Knee Depo40 completed TOSIN Cota [address] [facility], [place], [address], [facility] 12/07/2023 16:32:01 08/28/20 23 DME Post-Op Knee Brace DJO X-ROM completed NAYELI SANCHEZ [facility] [place] 08/29/2023 11:41:08 02/21/20 23 DME Cryo [place] Wrap Large completed SINDHU ZEPEDA [facility] [place] 02/22/2023 12:08:31 01/09/20 23 Injection Knee Joint Depo completed Arya Cruz MD [address] [facility], [place], [address], [facility] 01/15/2023 15:56:37 01/16/20 17 Aspiration Knee completed TOSIN Cutler [address] [facility], [place], [address], [facility] 01/15/2017 15:51:05 Knee completed TOSIN Cutler [address] [facility], [place], [address], [facility] 01/15/2017 15:49:40 Imaging Results Imaging Date Name Status LastModified by Organiz ation Details LastModified Time 04/07/2024 MRI, knee, w/o contrast completed [email or web address] [facility] [address], [place], [address], 04/07/2024 23:47:36 04/07/2024 CT, knee, w/o contrast completed [email or web address] [facility] [address], [place], [address], 04/07/2024 23:47:22 Procedure Notes None recorded. Medical Equipment None Reported. Allergies Allergen ID Allergen Name Allergen Category Reaction Reaction Severity Criticality Documentation Date Start Date Code Code System Note Provider Name and Address Organization Details Recorded Time baclofen medicatio n rash Not available Not available 01/08/2023 1292 RxNorm Not Available Health Note 3 15:52:22 36970 adhesive tape environme nt,medica tion Not available Not available Not available 01/15/2017 [id number] UNK TOSIN Cutler [address] [facility], [place], [address], [facility] 7 15:49:04 Medications Name Sig Start Date Stop Date Status Note LastModified by Organization Details LastModified Time celecoxib 200 mg capsule TAKE ONE CAPSULE BY MOUTH ONCE TO TWICE DAILY NEEDED FOR POSTOPERA TIVE PAIN active Not Available Not Available No t Available prednisone 10 mg tablet active HN: Patient reports no longer taking Not Available Not Available Not Available doxycycline hyclate 100 mg capsule TAKE 1 CAPSULE BY MOUTH TWICE DAILY FOR 10 DAYS active Not Available Not Available No t Available tizanidine 2 mg tablet active Not Available Not Available Not Available azithromyci n 250 mg tablet TAKE 2 TABLETS BY MOUTH ON DAY 1, AND THEN TAKE 1 TABLET BY MOUTH ONCE A DAY ON DAY 2 THROUGH DAY 5 active Not Available Not Available No t Available ibuprofen 800 mg tablet Take 1 tablet 3 times a day by oral route with meals. active Not Available Not Available No t Available benzonatate 200 mg capsule TAKE 1 CAPSULE BY MOUTH THREE TIMES DAILY NEEDED FOR COUGH active Not Available Not Available No t Available levonorgest rel-ethinyl estradiol 0.1 mg-20 mcg tablet TAKE 1 TABLET BY MOUTH ONCE DAILY active Not Available Not Available No t Available hydrocodone 5 mg-acetamin ophen 325 mg tablet TAKE 1 TABLET BY MOUTH EVERY 4 TO 6 HOURS NEEDED FOR POST OPERATIVE PAIN active Not Available Not Available No t Available meloxicam 15 mg tablet TAKE 1 TABLET BY MOUTH ONCE DAILY WITH FOOD active Not Available Not Available No t Available ondansetron HCl 4 mg tablet TAKE 1 TABLET BY MOUTH EVERY 8 HOURS NEEDED active Not Available Not Available No t Available prednisone 20 mg tablet TAKE 2 TABLETS BY MOUTH DAILY FOR 4 DAYS THEN TAKE 1 TABLET BY MOUTH DAILY FOR 3 DAYS active Not Available Not Available No t Available sennosides 8.6 mg-docusate sodium 50 mg tablet Take 2 tablets every day by oral route. 2022 active Not Available Not Available Not Avai lable acetaminoph en 300 mg-codeine 30 mg tablet active HN: Patient reports no longer taking Not Available Not Available Not Available hydrocodone 10 mg-acetamin ophen 325 mg tablet TAKE 1 TABLET BY MOUTH EVERY 4 HOURS NEEDED FOR POST OPERATIVE PAIN active Not Available Not Available No t Available peg-electro lyte solution 420 gram oral solution TAKE DIRECTED IN OFFICE HANDOUTS active HN: Patient reports no longer taking Not Available Not Available Not Available aspirin 81 mg tablet,servando yed release Take 1 tablet twice a day by oral route for 30 days. active Not Available Not Available No t Available tramadol 50 mg tablet TAKE 1 TABLET BY MOUTH TWICE DAILY NEEDED FOR PAIN active Not Available Not Available No t Available triamcinolo ne acetonide 0.1 % topical cream APPLY TO AFFECTED AREA TWICE DAILY FOR 2 WEEKS THEN DISCONTIN UE active Not Available Not Available No t Available amoxicillin 500 mg tablet TAKE 2 TABLETS BY MOUTH TWICE DAILY active HN: Patient reports no longer taking Not Available Not Available Not Available ketorolac 10 mg tablet active HN: Patient reports no longer taking Not Available Not Available Not Available cephalexin 500 mg capsule TAKE 1 CAPSULE BY MOUTH EVERY 8 HOURS FOR 10 DAYS active Not Available Not Available No t Available pantoprazol e 40 mg tablet,servando yed release TAKE 1 TABLET BY MOUTH ONCE DAILY active HN: Patient reports no longer taking Not Available Not Available Not Available hyoscyamine sulfate 0.125 mg tablet TAKE 1 TABLET BY MOUTH EVERY 6 HOURS NEEDED FOR CRAMPING OR ABDOMINAL PAIN active Not Available Not Available No t Available fluoxetine 10 mg capsule active Not Available Not Available Not Available omeprazole 20 mg capsule,del ayed release active Not Available Not Available Not Available ibuprofen 600 mg tablet TAKE 1 TABLET BY MOUTH EVERY 6 HOURS NEEDED active Not Available Not Available No t Available albuterol sulfate HFA 90 mcg/actuati on aerosol inhaler INHALE 2 PUFFS BY MOUTH EVERY 4 HOURS NEEDED FOR WHEEZING OR COUGH OR SHORTNESS OF BREATH active Not Available Not Available No t Available ondansetron 4 mg disintegrat ing tablet active HN: Patient reports no longer taking Not Available Not Available Not Available cefdinir 300 mg capsule TAKE 1 CAPSULE BY MOUTH TWICE DAILY active HN: Patient reports no longer taking Not Available Not Available Not Available dicyclomine 10 mg capsule TAKE 1 CAPSULE BY MOUTH THREE TIMES DAILY NEEDED active Not Available Not Available No t Available naproxen 500 mg tablet TAKE 1 TABLET BY MOUTH TWICE DAILY NEEDED FOR PAIN active HN: Patient reports no longer taking Not Available Not Available Not Available amoxicillin 875 mg-potassiu m clavulanate 125 mg tablet TAKE 1 TABLET BY MOUTH EVERY 12 HOURS active Not Available Not Available No t Available nabumetone 500 mg tablet TAKE 1 TABLET BY MOUTH TWICE DAILY NEEDED active HN: Patient reports no longer taking Not Available Not Available Not Available oxycodone 5 mg tablet TAKE 1 TABLET BY MOUTH EVERY 6 HOURS NEEDED FOR POST OPERATIVE PAIN UNCONTROL LED WITH HYDROCODO NE. active Not Available Not Available No t Available clindamycin 1 % lotion active Not Available Not Available N ot Available nitrofurant oin monohydrate /macrocryst als 100 mg capsule TAKE 1 CAPSULE BY MOUTH TWICE DAILY active HN: Patient reports no longer taking Not Available Not Available Not Available ibuprofen active Not Available Not Whitney ilable Not Available naproxen active HN: Patient reports no longer taking Not Available Not Available Not Available Tylenol active Not Available Not Avail able Not Available multivitami n MULTIVITA MIN 1/day active Not Available Not Available No t Available Xifaxan 550 mg tablet TAKE ONE TABLET BY MOUTH THREE TIMES A DAY active HN: Patient reports no longer taking Not Available Not Available Not Available PreviDent 5000 Booster Plus 1.1 % dental paste active HN: Patient reports no longer taking Not Available Not Available Not Available Flonase Allergy Relief 60 metered sprays of 50mcg/spr ay 1/day active Not Available Not Available No t Available Vitals None Recorded Social History Question Answer Notes LastModified by Organizat ion Details LastModified Time Tobacco Smoking Status Never Smoker Not Available Health Note 01/08/2023 15:52:24 How Much Tobacco Do You Chew? None [email or web address] Information not available 01/08/2023 Do You Or Have You Ever Used E-cigarettes Or Vape? Never Used Electronic Cigarettes [email or web address] Information not available 01/08/2023 What Is Your Occupation? Student [email or web address] Information not available 01/08/2023 Which Of Your Hands Is Dominant? Right [email or web address] Information not available 01/08/2023 Do You Use Illicit Drugs? No Information not available 01/15/2017 Do You Drink Alcohol? No Information not available 01/15/2017 Do You Use Stairs To Get Into Your Home? Yes Information not available 01/15/2017 How Far Are You Able To Walk? (Blocks) 0 [email or web address] Information not available 01/08/2023 Do You Exercise Regularly? Yes Information not available 01/15/2017 Exercise - How Many Times/week? 5 [email or web address] Information not available 01/08/2023 Do You Follow A Special Diet? No Information not available 01/15/2017 What Kind Of Work Do You Do? Other [email or web address] Information not available 01/08/2023 How Long Have You Worked For Your Current Employer? (years) 1 [email or web address] Information not available 01/08/2023 Work Status: Off Work Information not available 01/15/2017 Work Limitations Not Working Informa tion not available 01/15/2017 Change You Have Had In Your Work Activities. Your Work Activities Have: Decreased Information not available 01/15/2017 Work Activities - Decreased I Have Moderate/signi ficant Problems Information not available 01/15/2017 Do You Live Alone? No Information not available 01/15/2017 What Was The Date Of Your Most Recent Tobacco Screening? 01/08/2023 [email or web address] Information not available 01/08/2023 What Is Your Relationship Status? Single [email or web address] Information not available 01/08/2023 Do You Or Have You Ever Used Smokeless Tobacco? Never Used Smokeless Tobacco [email or web address] Information not available 01/08/2023 Work Related Injury? No Information not available 01/15/2017 Sex: Unknown Functional Status None recorded. Mental Status None recorded. Family History Relationship Description Onset Age of this Age Resolved Age Notes LastModified by Organization Details LastModified Time Maternal Aunt Family history of Osteoarthrit is [email or web address] Not available 2016 15:49:08 Maternal Aunt Family history of Osteoarthrit is [email or web address] Not available 2016 15:49:08 Paternal Grandfather Family history of Hypertension [email or web address] Not available 04/2017 15:49:08 Paternal Grandfather Family history of diabetes mellitus [email or web address] Not available 2016 15:49:08 Father Family history of Hypertension [email or web address] Not available 04/2017 15:49:08 Maternal Grandfather Family history of Cardiovascul ar disease [email or web address] Not available 01/15 15:49:08 Maternal Grandfather Family history of Hypertension [email or web address] Not available 04/2017 15:49:08 Paternal Grandmother Family history of Osteoarthrit is [email or web address] Not available 2016 15:49:08 Paternal Uncle Family history of Depression [email or web address] Not available 01/15 15:49:08 Paternal Uncle Family history of malignant neoplasm [email or web address] Not available 2016 15:49:08 Notes:Father has high blood pressure Father has epilepsy Medical History Condition Response High Blood Pressure N Hernia N Glaucoma N Depression N Pneumonia N Alzheimer's Disease N Obesity N Arthritis N Have you ever had a problem with IV/Twil ight Sedation? N Thyroid Problem N Cancer N Have you ever had a problem with general anesthesia? N Stroke N Paget's Disease N Blood clot N CRPS N ADHD N Polio N Rheumatoid Arthritis N Short Stature N Fibromyalgia N Active Dental Problem Y Kidney Problem N Emphysema/Bronchitis N HIV N Colitis N Parkinson's Disease N Immunodeficiency Disease N If surgery is required, woul d you be willing to accept a blood transfusion if necessary? Y Valve Problem N Heart Disease/Heart Attack N Multiple Sclerosis N Dermatitis N Constipation N Do your periods come monthly? N Ulcers N Cardiac Problem N Diabetes N Cataracts N Spectrum Disorder N Tuberculosis N Genetic Disorder N Cerebral Palsy N Phlebitis N Eczema N Osteoarthritis/Degenerative Bone Disease N Diverticulitis N Vision Problems Y Asthma N Lupus N Epilepsy N Ankylosing Spondylitis N Sinus Problems Y Psoriasis N Sleep apnea N Autism N Ulcerative Colitis N Hepatitis N Past Transfusions N Do you have a menstrual cycle (i.e. carol od)? N Osteoporosis N Gynecological History Statement/Question Response Menses Monthly N Are you currently ? N Do you have a menstrual cycle (i.e. carol od)? Y Age at Menarche 11 Date of LMP 11/29/2016 Obstetrics History GPAL:G 0 P 0 0 0 0 Immunizations Vaccine Type Date Status Note Provider Nam e and Address Organization Details Recorded Time influenza, unspecified formulation 2 completed Not Available Health Note 01/08/2023 15:52:29 Past Encounters Encounter ID Performer Location Encounter Start Date Encounter Closed Date Diagnosis/Indication Diagnosis SNOMED-CT Code Diagnosis ICD10 Code Diagnosis Note [id number] Arya Cruz MD [facility] [place] [address] 01/15/2017 13:24:46 01/15/2017 16:16:25 Tear of lateral meniscus of knee 925206156 S83.261A Knee pain 46001456 M25.5 69 [id number] MD JEANIE [facility] [place] [address] 1 01/08/2023 15:27:29 01/08/2023 17:26:31 Pain of right knee joint 4216573280 14734 M25.825 [id number] TOSIN Lehman [facility] [address] 02/07/2023 10:32:50 06/18/2023 11:01:48 Tear of lateral meniscus of knee 542153785 S83.281A [id number] SINDHU ZEPEDA [facility] er_[facility] [address] [address] 02/20/2023 09:42:44 02/22/2023 11:47:19 Defect of articular cartilage 117722021 M24.10 [id number] Castillo Lopez i, PA-C [facility] [place] [address] 03/02/2023 13:27:02 03/05/2023 07:21:51 Chondromalacia 78489956 M94.[id number] [address] 05/09/2023 08:59:03 05/18/2023 09:41:58 Effusion of joint of right knee 3249525288 01059 M25.393 [id number]ota[address] [address] 05/23/2023 10:38:32 05/24/2023 15:28:19 Effusion of joint of right knee 2132791033 70161 M25.899 [id number] MD JEANIE Thomas_[facility] in_[address]th_ Floor [address] [place] [address] 06/25/2023 13:56:50 06/25/2023 15:28:53 Defect of articular cartilage 080584967 M24.10 [id number] NAYELI BELTRAN I [facility] _DME [address] [place] [address] 08/28/2023 10:02:33 08/29/2023 11:18:54 Articular cartilage disorder of knee 824186951 M23.90 [id number] TSOIN Lehman [address] [address] 09/04/2023 10:01:33 09/20/2023 10:54:47 Derangement of meniscus 191016382 M23.192 [id number] Arya Cruz MD [facility] in_4th_ Floor [address] [place] [address] 10/15/2023 11:20:14 10/15/2023 12:29:22 Medical assessment 188244376 Z04.89 Derangemen t of meniscus 226175741 M23.069 [id number] Miri Banerjee, PA [facility]ic_4th_ Floor [address] [place] [address] 1 12/07/2023 10:55:05 12/07/2023 12:05:28 Defect of articular cartilage 474160827 M24.10 [id number] Castillo Lopez i, PA-C [place] [address] 01/11/2024 10:58:03 01/18/2024 11:45:33 Derangement of meniscus 243802485 M23.242 [id number] LAXMI RICHARDSON [facility] I [address] [place] [address] 1 04/07/2024 12:52:28 04/07/2024 13:37:34 Defect of articular cartilage 930021974 M24.10 [id number] SILVINA LNYN [facility]CT [address] [place] [address] 1 04/07/2024 12:53:20 04/07/2024 14:39:42 Defect of articular cartilage 449376473 M24.10 [id number] Arya Cruz MD [facility]ic_[facility]_ Floor [address] [place] [address] 1 04/07/2024 14:25:25 04/07/2024 16:28:12 Effusion of joint of right knee 0457548781 64121 M25.286 [id number] MADIHA MCMILLAN [facility]_DM E [address] [place] [address] 1 04/07/2024 16:34:04 04/07/2024 16:51:24 Joint finding 590675111 M25.836 [id number] NAYELI BELTRAN I [facility] [address] [facility],[address] [address] 06/24/2024 08:28:27 06/26/2024 09:02:26 Rupture of articular cartilage of knee joint 719247524 S83.31XA [id number] TOSIN Lehman [facility] [address] [facility], [address] [place] [address] 07/03/2024 13:39:27 07/15/2024 13:50:41 Chondromalacia 78908852 M94.20 Health Concerns Section Related Observation LastModified by Organization Detai ls LastModified Time None Recorded Concern Status LastModified by Organization Details LastModified Time None Recorded Advance Directives Directive None Recorded Payers Encounter Date Sequence Insurance Name Policy Number Policy De Jesus Covered Member ID De Jesus Member ID Guarantor Name 04/07/2024 1 [place] [id number] [facility] [id number] 62 Skye [facility] 04/07/2024 1 [place] [id number] Mihir [facility] [id number] 62 Skye [facility] 04/07/2024 2 *SELF PAY* Er in [facility] 06/24/2024 1 [place] [id number] Mihir [facility] [id number] 62 Skye [facility] 06/24/2024 2 *SELF PAY* Er in [facility] 07/03/2024 1 [place] [id number] Mihir [facility] [id number] 62 Skye [facility] 07/03/2024 2 *SELF PAY* Er in [facility] Notes Date Note Type Note Provider Name and Address Organization Details Recorded Time 07/03/2024 text/html Skye was seen by telemedicine today now 9 days out from her Right knee arthroscopy with debridement and loose body removal with small lateral meniscectomy. She is overall doing well with no significant complications or complaints. TOSIN Lehman [address], [place], [id number], [facility] - [facility] 07/03/2024 18:24:09 OBGyn Episode No OBEpisode recorded.
== END 2024-12-27 08:25 | disposition home or self-care (01) ==
LOC: CHSIMG 08:29
DX: S83.271A Complex tear of lateral meniscus, current injury, right knee, initial encounter (principal); M89.9 Disorder of bone, unspecified
CPT/HCPCS: 73721